=== PATIENT | female | born 1985 | race Caucasian/White ===

== ENCOUNTER 2024-05-14 16:00 | Emergency (ER) | payer OTHER ==
[~2024-05-14] VITALS: Ht 154.9 cm; Wt 115.3 kg
[2024-05-14 16:27] VITALS: BP 142/86; PULSE 99; RESP 18; TEMP 97.7; O2SAT 95
[2024-05-14] MEDS ORDERED: IBUP-2213 PO (17:15)
[2024-05-14] MEDS ORDERED: CEPH-588 PO (17:15)
[2024-05-14 17:25] VITALS: BP 142/86; PULSE 99; RESP 18; TEMP 97.7; O2SAT 95
== END 2024-05-14 17:30 | disposition home or self-care (01) ==
LOC: MED 16:00
DX: L03.116 Cellulitis of left lower limb (principal); Z79.899 Other long term (current) drug therapy
CPT/HCPCS: 99283